=== PATIENT | female | born 1940 | race Caucasian/White ===

== ENCOUNTER → 2017-01-24 | Outpatient (CLI) | payer MEDICARE, BC ==
[~2017-01-24] MED LIST: ALBU8.5H5 IH; CALC-494 PO; IOHEXOL 300 MG/ML 100ml INJECTION ONE; METO25TA41 PO; MULT-798 PO; NORMAL SALINE 100 ML ONE; PANT40TA32 PO; SALINE FLUSH 10ml SYRINGE ONE; TRIA1TAB PO; WARF2TAB PO; [UNRECOGNIZED DRUG - CODE] DT; [UNRECOGNIZED DRUG - CODE] PO; [UNRECOGNIZED DRUG - OTHER]
[2017-01-24 12:19] LABS: CREATININE 1.1 MG/DL (0.7-1.2)
--- NOTE | 2017-01-24 13:31 | DI ---
Indication: ITS.REASON: R31.2 Other microscopic hematuria PROCEDURE: CT RENAL W/WO CONTRAST: Encounter: Initial Comparison: None Technique: Axial CT images were performed through the abdomen and pelvis before and after the administration of intravenous contrast. Delayed postcontrast images were also performed. Coronal and sagittal 2-dimensional reformats. Automated Exposure Control and Iterative Reconstruction dose reducing techniques were utilized. Contrast: Omnipaque 300 100 mL Findings: Some areas of fibrosis and scarring in the right middle lobe and lingula with fine nodules scattered throughout both lower lung [place] ranging from 2 to 4 mm in size. There is a more focal nodule in the medial right lower lobe on image #21 measuring 9 mm in diameter. This is noncalcified. Noncontrast images show no renal or ureteral stone disease. Postcontrast images show normal enhancement of the liver. No bile duct dilatation. The gallbladder is surgically absent. 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 The pancreas appears normal. Surgical changes at the distal stomach and omental area with multiple surgical clips. The adrenal glands are normal. Kidneys enhance normally without focal mass or hydronephrosis. No abdominal or pelvic lymphadenopathy. No free fluid. The bladder is normal with out evidence of enhancing mass or wall thickening. Uterus is surgically absent. No free pelvic fluid. No evidence of a bowel obstruction. 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 Delayed postcontrast images show symmetric excretion of contrast by both renal collecting systems. No filling defects or masses identified. The partially opacified urinary bladder appears normal. Impression: 1. No urolithiasis. No renal or bladder mass. No clear etiology for the patient's hematuria. 2. Multiple bilateral pulmonary nodules which could be due to granulomatous disease given the findings in the spleen however other infectious etiologies and metastases cannot be entirely excluded. Recommend correlation for any available prior CT exams. If comparisons are unavailable a noncontrast chest CT is recommended for more complete evaluation. .
== END ==
LOC: IMA 11:51
PROVIDERS: ATTEND Family Medicine
DX: R31.29 Other microscopic hematuria (principal); R91.8 Other nonspecific abnormal finding of lung field
CPT/HCPCS: 36415; 74178; 82565; 84520; J7050; Q9967

== ENCOUNTER → 2017-02-27 | Outpatient (CLI) | payer MEDICARE, BC ==
[~2017-02-27] MED LIST changes: -IOHEXOL 300 MG/ML 100ml INJECTION ONE; +IOHEXOL 300 MG/ML 75ml INJECTION ONE
--- NOTE | 2017-02-27 08:28 | DI ---
Indication: ITS.REASON: R91.8 Other nonspecific abnormal finding of lung field CT CHEST W/CONTRAST: Comparison: None Technique: Patient scanned from above the thoracic inlet to below the diaphragms after 75 cc Omni 300 intravenous contrast utilizing dose reduction imaging technology and reformatted sagittal and coronal orientation. Findings: No acute findings noted in the base of the neck. No pathologic adenopathy appreciated in the axillary regions, Spear mediastinum or hilar regions. Heart size was within acceptable limits. No acute cardiac decompensation or marked cardiomegaly suggested. Patient showed significant rotoscoliosis involving particularly the lumbar spine with mild degenerative changes appreciated in the thoracic spine. Moderate sized hilar hernia. Patient showed some postoperative changes in the central abdomen Pulmonary parenchyma shows just very mild chronic change with a few subtle areas of slightly groundglass appearance most pronounced in the right middle lobe. Impression: 1. Mild chronic lung changes with slightly more subtle indeterminate patchy areas of groundglass haziness in the right middle lobe. 2. Patient does show a 9.4 mm noncalcified density just above the right diaphragm posteriorly. This merits three month follow-up. 3. No pathologically enlarged lymph nodes. 4. Advanced degenerative changes and rotoscoliosis particularly in the lumbar spine. .
== END ==
LOC: IMA 07:23
PROVIDERS: ATTEND Surgery
DX: R91.8 Other nonspecific abnormal finding of lung field (principal); J98.4 Other disorders of lung; M47.896 Other spondylosis, lumbar region; M41.9 Scoliosis, unspecified
CPT/HCPCS: 71260; J7050; Q9967